=== PATIENT | female | born 1985 | race Two or more races ===

== ENCOUNTER 2017-10-08 07:33 | Emergency (ER) | payer OTHER ==
[~2017-10-08] VITALS: Ht 162.6 cm; Wt 99.0 kg
[2017-10-08] MEDS ORDERED: VISCOUS LIDOCAINE 2% 15 ML UDC MM ONE (08:45)
[2017-10-08 09:11] VITALS: BP 132/98
== END 2017-10-08 09:15 | disposition home or self-care (01) ==
LOC: ER 08:13
DX: J06.9 Acute upper respiratory infection, unspecified (principal)
CPT/HCPCS: 99283